=== PATIENT | male | born 1950 | race Caucasian/White ===

== ENCOUNTER 2019-02-26 10:56 | Inpatient (IN) ==
--- NOTE | 2019-01-22 14:45 | PAT Medication Instructions ---
Medication Instructions Date of Service January 22, 2019 Home Medications aspirin 81 mg PO QPM atorvastatin 10 mg PO PM hydrochlorothiazide 12.5 mg PO QPM ramipril 10 mg PO QPM Take evening before surgery aspirin 81 mg PO QPM atorvastatin 10 mg PO PM hydrochlorothiazide 12.5 mg PO QPM ramipril 10 mg PO QPM Other Notes If you have any questions please call us at [phone] or [phone] or [phone] or [phone]
--- NOTE | 2019-01-25 11:00 | Anesthesiology Consultation ---
Date of Service January 25, 2019 Assessment & Plan (1) Encounter for pre-operative examination: - Awaiting review preop testing (EKG). - Awaiting review of 2018 stress test. - S/P right shoulder scope, RCR, acromioplasty: 03/05/18: LMA#5 unique + [place] [facility] [place] Review Chart Review: Patient seen in Pre Admission Testing Teaching & Discussion Pre-Anesthesia Teaching/Discussion Notes: Instructed NPO after midnight before surgery,except medications with 15 cc of water. Medication instructions prov ided according to the PAT guidelines. History Surgery Operation Date: 02/26/19 13:00 Proposed Procedures p Right Total Knee Arthroplasty - Alvin Rose DO Height/Weight Height: 5 ft 9 in Weight: 83.5 kg Allergies Allergy/AdvReac Type Severity Reaction Status Date / Time No Known Allergies Allergy Verified 01/13/19 10:43 Medications Home Medications Medication Instructions Recorded Confirmed Last Taken aspirin 81 mg PO QPM 02/13/18 01/25/19 03/04/18 atorvastatin 10 mg PO PM 02/13/18 01/25/19 03/04/18 hydrochlorothiazide 12.5 mg PO QPM 02/13/18 01/25/19 03/04/18 ramipril 10 mg PO QPM 02/13/18 01/25/19 03/04/18 Past Medical History Medical History Hearing deficit BL KIRKPATRICK Hyperlipidemia Hypertension Kidney stones Osteoarthritis Exercise / Class Metabolic Activity II 4-5 Yardwork/Stairs/Walk up hill (one flight of stairs (no chest pain/no sob)) Past Surgical History Surgical History (Updated 01/25/19 @ 11:15 by Nani Marino) History of colonoscopy History of hand surgery LEFT HAND History of repair of rotator cuff right shoulder scope, RCR, acromioplasty: 03/05/18: LMA#5 unique + PNB at [facility] [place] History of tonsillectomy RIGHT Past Anesthesia History No Hx of Anesthesia Complications and No Family Hx of Anesthesia Complications History of PONV No Hx of PONV and No Hx of Motion Sickness Social History Smoking Status: Former smoker tobacco type: smokeless tobacco Do You Dip or Chew Tobacco: Yes (1 CAN/2 DAYS- ADVISED NPO AM DOS) Smoking End Date: QUIT 25 YRS AGO Hx Alcohol Use: Yes Alcohol type: beer, wine and hard liquor alcohol intake frequency: holidays/special occasions only Hx Substance Use: No substance use type: does not use Review of Systems Patient denies chest pain, shortness of breath, dyspnea on exertion, reflux, cough, wheezing, palpitations. Physical Exam Vital Signs VITALS BP 126/85 P 55 TEMP 97.7 SP02 95%RA RESP 16 PHYSICAL Full neck and c-spine range of motion. Full TMJ range of motion. TMD 2.5 finger breaths Mallampati Score 1 Dentition: full dentures upper/lower; edentulous Lungs: clear throughout to auscultation Cardiac: regular rate and rhythm, no murmurs noted Spine: normal Carotid arteries: negative bruit Extremities: no edema Trimmed rodas Testing Laboratory Results 01/25/19 11:11 01/25/19 11:11 PT 10.5 Seconds (9.0-12.0) 01/25/19 11:11 INR 1.0 (0.9-1.1) 01/25/19 11:11 APTT 27.1 Seconds (21.0-31.0) 01/25/19 11:11 Blood Type A Positive 01/25/19 11:11 Antibody Screen NEGATIVE 01/25/19 11:11 Chest X-Ray Date: 01/25/19 Borderline cardiomegaly. No other convincing evidence of acute cardiopulmonary disease.
[2019-01-25 11:46] LABS: Basophils # (auto) 0.03 K/uL (0-0.2); Basophils % (auto) 0.6 %; Eosinophils # (auto) 0.13 K/uL (0-0.5); Eosinophils % (auto) 2.8 %; Hematocrit (blood only) 44.2 % (42-52); Hemoglobin 14.9 g/dL (14.0-18.0); Immature Granulocytes # (auto) 0.01 K/uL (0.00-0.02); Immature Granulocytes % (auto) 0.2 %; Lymphocytes # (auto) 1.37 K/uL (1.2-3.4); Lymphocytes % (auto) 29.3 %; Mean Corpuscular Hemoglobin 30.9 pg (25-34); Mean Corpuscular Hgb Conc 33.7 g/dL (32-36); Mean Corpuscular Volume 91.7 fL (80-100); Mean Platelet Volume 11.5 fL (7.4-10.4); Monocytes # (auto) 0.57 K/uL (0.11-0.59); Monocytes % (auto) 12.2 %; Neutrophils # (auto) 2.57 K/uL (1.4-6.5); Neutrophils % (auto) 54.9 %; Platelet Count 169 K/uL (130-400); RDW Coefficient of Variation 12.8 % (11.5-14.5); RDW Standard Deviation 42.9 fL (36.4-46.3); Red Blood Count 4.82 M/uL (4.7-6.1); White Blood Count 4.68 K/uL (4.8-10.8)
[2019-01-25 11:54] LABS: Calcium 9.5 mg/dl (8.5-10.1); Est GFR (African American) 66.7; Est GFR (Non-African American) 57.5; Potassium 4.4 mmol/L (3.5-5.1)
[2019-01-25 11:57] LABS: Partial Thromboplastin Time 27.1 Seconds (21.0-31.0); Prothrombin Time 10.5 Seconds (9.0-12.0)
--- NOTE | 2019-01-25 12:18 | XRay Report ---
XR chest Pre-admission PA/Lat CLINICAL HISTORY: 68 years-old Male presenting with preoperative assessment. TECHNIQUE: PA and lateral views of the chest were obtained. COMPARISON: None. FINDINGS: Cardiac silhouette borderline enlarged. Lungs and pleural spaces clear. Osseous structures normal. Up per abdomen normal. IMPRESSION: 1. Borderline cardiomegaly. No other convincing evidence of acute cardiopulmonary disease. Electronically signed by: Reinaldo Engel M.D. 01/25/2019 12:17 PM
--- NOTE | 2019-02-25 06:52 | History & Physical Report ---
Date of Service February 25, 2019 Assessment & Plan (1) Osteoarthritis of right knee: We will proceed with a right total knee arthroplasty. Postoperatively he will be started on aspirin for DVT prophylaxis. He will be kept overnight in the hospital for postoperative medical management. He plans [facility] upon discharge. Present on Admission?: Yes History of Present Illness Chief Complaint: Primary osteoarthritis of the right knee Primary Care Provider: John Collado is a pleasant 68-year-old male who is been dealing with chronic increasing right knee pain. X-rays and clinical examination has been diagnostic for medial compartment arthritis of the right knee. I also have an MRI of his right knee which shows advancing arthritis. After failing conservative treatment, he has elected to proceed with a right total knee arthroplasty. Allergies Allergy/AdvReac Type Severity Reaction Status Date / Time No Known Allergies Allergy Verified 01/13/19 10:43 Home Medications Home Medications Medication Instructions Recorded Confirmed Type aspirin 81 mg PO QPM 02/13/18 01/25/19 History atorvastatin 10 mg PO PM 02/13/18 01/25/19 History hydrochlorothiazide 12.5 mg PO QPM 02/13/18 01/25/19 History ramipril 10 mg PO QPM 02/13/18 01/25/19 History Past Med/Surg History Medical History Hearing deficit BL KIRKPATRICK Hyperlipidemia Hypertension Kidney stones Osteoarthritis Surgical History History of colonoscopy History of hand surgery LEFT HAND History of repair of rotator cuff right shoulder scope, RCR, acromioplasty: 03/05/18: LMA#5 unique [place] [facility] [place] History of tonsillectomy RIGHT Social History Preferred Language: Samoan Communication Ability: Effective Matlab Developer Required: No Beliefs That Will Affect Care: None Current Living Situation: Spouse Other Information That Helps Us Care for You: No Feels Safe at Home: Yes Safety Concerns: Feels Safe At This Time Smoking Status: Former smoker Tobacco Type: smokeless tobacco ; Do You Dip or Chew Tobacco: Yes (1 CAN/2 DAYS- ADVISED NPO AM DOS) ; Smoking End Date: QUIT 25 YRS AGO ; Second Hand Exposure: No ; Hx Alcohol Use: Yes Alcohol type: beer, wine and hard liquor Hx Substance Use: No Review of Systems All systems reviewed & are unremarkable except as noted in HPI & below Physical Exam Constitutional: WD/WN, vitals as above Eyes: PERRL, conjunctivae normal, anicteric sclerae ENMT: external ear and nose normal, oropharynx normal Neck: trachea midline, no thyromegaly Respiratory: normal respiratory effort Cardiovascular: RRR, no murmur, no edema Gastrointestinal (Abdomen): normal bowel sounds, soft, nontender, no hepatosplenomegaly Musculoskeletal: On physical examination of the right knee there is a trace effusion. There is near full range of motion and no evidence of instability. There is significant tenderness palpation along the medial and lateral joint lines and over the distal femoral condyles. Psychiatric: A+Ox3, euthymic affect Results & Data Diagnostic Findings Radiographs of the right knee demonstrate advanced osteoarthritis with joint space narrowing osteophyte formation and [id number] articulation.
[~2019-02-26 10:56] MED LIST: ACETAMINOPHEN 500 MG TAB PO SCH; BUPIVACAINE 0.5 % 5 MG/1 ML PF 10ML VIAL ONE; CEFAZOLIN 2000MG 2,000 MG/15 ML SYR IV SCH; EPINEPHrine INJ 1 MG/ML AMP ONE; FAMOTIDINE 20 MG TAB PO SCH; GABAPENTIN 300 MG CAP PO SCH; LR 500ML BOLUS, THEN 15ML/HR IV SCH; LR 60ML/HR IV SCH; MIDAZOLAM HCL 1 MG/ML 2ML VIAL ONE; ROPIVACAINE 0.5% 5 MG/ML 30 ML VIAL ONE; ROPIVACAINE 0.5% HCL/PF 150 MG, BUPIVACAINE 0.5% MPF 30 ML, EPINEPHrine 30MG/30ML (OR U... INSTIL SCH; TRANEXAMIC ACID 1,000 MG **IV Intra-op IV SCH; TRANEXAMIC ACID 1,000 MG **IV Pre-op IV SCH; fentaNYL citrate 100 MCG/2 ML VIAL ONE
[2019-02-26] MEDS ORDERED: TRANEXAMIC ACID / 0.7% NACL 1000MG/100ML BAG IV ONE (11:07)
[2019-02-26] MEDS ORDERED: dexAMETHasone 4 MG TAB PO ONE (11:34)
--- NOTE | 2019-02-26 11:37 | History & Physical Bridge Note ---
Date of Service February 26, 2019 History & Physical Bridge Note I have examined the patient, reviewed the History & Physical and in the interval since the performance of the History & Physical I have noted the following changes of clinical significance: no changes noted
[2019-02-26] MEDS ORDERED: ORTHO JOINT ANESTHETIC ONE (12:11)
[2019-02-26] MEDS ORDERED: LABETALOL HCL IV 5 MG/ML 20ML IV PRN (12:35)
[2019-02-26] MEDS ORDERED: ePHEDrine sulfate 50 MG/ML AMP IV PRN (12:35)
[2019-02-26] MEDS ORDERED: ONDANSETRON INJ 2 MG/ML 2 ML VIAL IV PRN ×2 (12:35→15:31)
[2019-02-26] MEDS ORDERED: MEPERIDINE HCL 25 MG/ML CARP IV PRN (12:35)
[2019-02-26] MEDS ORDERED: PHENYLEPHRINE 100MCG/ML 5ML SYR IV PRN (12:35)
[2019-02-26] MEDS ORDERED: HYDROmorphone INJ 1 MG/ML SYRINGE IV PRN (12:35)
[2019-02-26] MEDS ORDERED: ATROPINE SULFATE 0.1 MG/ML 10ML SYR IV PRN (12:35)
[2019-02-26] MEDS ORDERED: fentaNYL citrate 100 MCG/2 ML VIAL IV PRN (12:35)
[2019-02-26] MEDS ORDERED: PROPOFOL IV EMULSION 10 MG/ML 20 ML VIAL IV ONE (13:11)
--- NOTE | 2019-02-26 14:21 | Operative Report ---
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 MRI and clinical examination are diagnostic for advanced arthritis mostly involving the medial compartment of the right knee. After failing conservative treatment, he elected proceed with a right total knee arthroplasty. Description of Procedure Implants used: I used a Biomet Vanguard total knee arthroplasty system with a size 70 femur, 75 tibia, 31 patella, and a size 12 PS polyethylene bearing. All components were cemented in place with Palacos G cement. The patient arrived [facility] for the above procedure. There were seen in the preoperative holding area and the operative extremity was identified and signed. There were given a preoperative antibiotic, a spinal anesthetic and an adductor nerve block. There were taken back to the operating room and laid on the table in supine position. There were given basic sedation. The operative knee was then prepped and draped in sterile fashion. A timeout was done, and the patient and the operative extremity was properly identified. A midline incision was made directly over the patella. Dissection was taken down to the extensor mechanism. A subvastus arthrotomy was used. The medial retinaculum was released and the fat pad was mostly left intact. The knee was flexed and the ACL, PCL, and meniscus were removed. A drill was sent down the center of the femoral canal followed by an intramedullary jodi. Off that jodi a distal femoral cutting block was placed. 9 mm was resected off the distal femur at 5 of valgus. A posterior referencing AP sizing guide was then placed on the distal femur. The femur measured to be a size 70. 2 drill holes were placed in 3 of external rotation. A 4-in-1 cutting block was then impacted into place. Anterior posterior and chamfer cuts were then made. The posterior stabilizing box guide was then impacted into place and the box was resected for the posterior stabilizing component. The proximal tibia was then exposed. A drill was sent down the center of the tibial canal followed by an intramedullary jodi. Off that jodi a proximal tibial resection guide was placed. The proximal tibia was then resected. The tibia measured to be a size 75. The tibial plate was then placed in the appropriate rotation and the tibia was punched. The posterior aspect of the knee was then opened up and any additional meniscus fragments and osteophytes were removed. Trial components were then placed. I used a size 12 PS polyethylene insert. Th e knee was brought through a full range of motion and felt to be stable. The patella was then everted and 8 mm was resected off the posterior aspect of the patella. The patella measured to be a size 31. 3 peg holes were then drilled. A trial patella was placed. The knee was once again brought through a full range of motion and felt to be stable. Trial components were then removed. The surrounding soft tissues were injected with 100 cc of an orthopedic pain control cocktail. All components were then cemented into place with Palacos G cement. The final polyethylene insert was then snapped into place and the anterior bar was locked. Once cement was dry the tourniquet was deflated. Hemostasis was obtained. A dilute betadyne lavage was then done for 3 minutes. The joint was then irrigated with normal saline solution. The subvastus arthrotomy was then closed with #1 Vicryl suture. The skin was closed with 2-0 Vicryl, 3-0V lock suture, and milly. A soft compressive dressing was placed. The patient was then transferred to a hospital bed and taken to the postanesthesia care unit in stable condition. They tolerated the procedure well. I attest to the content of the Intraoperative Record and any orders documented therein. Any exceptions are noted below.
[2019-02-26] MEDS ORDERED: PHENYLEPHRINE 100MCG/ML 5ML SYR ONE (14:26)
--- NOTE | 2019-02-26 15:00 | XRay Report ---
TWO VIEWS RIGHT KNEE CLINICAL HISTORY: Postoperative examination. FINDINGS: AP and crosstable lateral portable views of the right knee are obtained. A right knee arthr oplasty is in near anatomic alignment. There has been undersurface remodeling of the patella. No acut e fracture is seen. There are expected postoperative changes around the knee including skin clips, so ft tissue edema, and subcutaneous gas. IMPRESSION: Expected postoperative changes status post right knee arthroplasty. No acute fracture is seen. ACT 112: Negative or not required by law. Electronically signed by: Kam Cramer M.D. 02/26/2019 2:58 PM
--- NOTE | 2019-02-26 15:08 | Anesthesiology Progress Note ---
Date of Service February 26, 2019 Anesthesia Post Procedure Vital Signs Vital Signs: Temp Pulse Pulse Pulse Resp BP BP 02/26/19 14:51 77 15 99/59 L 02/26/19 14:50 71 13 02/26/19 14:46 75 21 02/26/19 14:45 75 14 94/56 L 02/26/19 14:43 72 12 95/62 L 02/26/19 14:41 87 17 02/26/19 14:40 77 13 89/50 L 02/26/19 14:37 74 13 02/26/19 14:36 36.1 C L 76 74 14 98/58 L 98/58 L 02/26/19 11:14 36.9 C 72 18 136/88 Pulse Ox 02/26/19 14:51 96 02/26/19 14:50 95 02/26/19 14:46 02/26/19 14:45 02/26/19 14:43 02/26/19 14:41 02/26/19 14:40 02/26/19 14:37 02/26/19 14:36 100 02/26/19 11:14 97 Pain Intensity Right Knee: Pain Intensity: 0 Transfer of Care Handoff Completed per policy Notes Mental Status: alert / awake / arousable Patient Amnestic to Procedure: Yes Nausea / Vomiting: adequately controlled Pain: adequately controlled Airway Patency, RR, SpO2: stable & adequate BP & HR: stable & adequate Hydration State: stable & adequate Neuraxial Anesthesia: was administered and sensory block is resolving Anesthetic Complications: no major complications apparent and Pt Satisfied with anesthetic care
[2019-02-26] MEDS ORDERED: bisacodyL 10 MG SUPP PR PRN (15:31)
[2019-02-26] MEDS ORDERED: HYDROmorphone INJ 0.5 MG/0.5 ML SYR IV PRN (15:31)
[2019-02-26] MEDS ORDERED: MAGNESIUM HYDROXIDE SUSP 30 ML UDC PO PRN (15:31)
[2019-02-26] MEDS ORDERED: METOCLOPRAMIDE HCL INJ 5 MG/ML 2 ML VIAL IV PRN (15:31)
[2019-02-26] MEDS ORDERED: OXYCODONE HCL IR 5 MG TAB (IMMEDIATE RELEASE) PO PRN (15:31)
[2019-02-26] MEDS ORDERED: NALOXONE HCL 0.4 MG/1 ML VIAL/CARP IV PRN (15:31)
[2019-02-26] MEDS ORDERED: KETOROLAC 30 MG/ML VIAL IV SCH (16:00)
[2019-02-26] MEDS: SODIUM CHLORIDE 0.9% 1000ML 1,000 ML IV SCH (16:33)
[2019-02-26] MEDS: KETOROLAC TROMETHAMINE 15 MG/ML VIAL IV SCH ×2 (16:53→22:31)
[2019-02-26] MEDS ORDERED: hydroCHLOROthiazide 25 MG TAB PO SCH (21:00)
[2019-02-26] MEDS ORDERED: SENNA 8.6 MG TAB PO SCH (21:00)
[2019-02-26] MEDS ORDERED: ENALAPRIL MALEATE 10 MG TAB PO SCH (21:00)
[2019-02-26] MEDS ORDERED: ATORVASTATIN 10 MG TAB PO SCH (21:00)
[2019-02-26] MEDS: CEFAZOLIN 2000MG 2,000 MG/15 ML SYR IV SCH (21:11)
[2019-02-26] MEDS: DOCUSATE SODIUM 100 MG CAP PO SCH (21:12)
[2019-02-26] MEDS: ASPIRIN 81 MG ECTAB PO SCH (21:14)
[2019-02-26] MEDS: ACETAMINOPHEN 500 MG TAB PO SCH (21:15)
[2019-02-27] MEDS: SODIUM CHLORIDE 0.9% 1000ML 1,000 ML IV SCH (02:42)
[2019-02-27] MEDS: ACETAMINOPHEN 500 MG TAB PO SCH (05:11)
[2019-02-27] MEDS: KETOROLAC TROMETHAMINE 15 MG/ML VIAL IV SCH (05:11)
[2019-02-27] MEDS: CEFAZOLIN 2000MG 2,000 MG/15 ML SYR IV SCH (05:11)
[2019-02-27 05:22] LABS: Hematocrit (blood only) 36.9 % (42-52); Hemoglobin 12.3 g/dL (14.0-18.0); Mean Corpuscular Hemoglobin 30.5 pg (25-34); Mean Corpuscular Hgb Conc 33.3 g/dL (32-36); Mean Corpuscular Volume 91.6 fL (80-100); Mean Platelet Volume 11.6 fL (7.4-10.4); Platelet Count 171 K/uL (130-400); RDW Coefficient of Variation 12.8 % (11.5-14.5); Red Blood Count 4.03 M/uL (4.7-6.1); White Blood Count 14.51 K/uL (4.8-10.8)
[2019-02-27 05:48] LABS: BUN Creatinine Ratio 16.8 (10-20); Calcium 8.7 mg/dl (8.5-10.1); Creatinine Clr Calc Pharmacy 49.8 ml/min; Est GFR (African American) 57.8; Est GFR (Non-African American) 49.9; Potassium 4.7 mmol/L (3.5-5.1)
--- NOTE | 2019-02-27 06:29 | Orthopedic Progress Note ---
Date of Service February 27, 2019 Assessment & Plan (1) History of total right knee replacement: Overall is doing very well. Is not having much pain in the right knee. He is on aspirin for DVT prophylaxis. He will be seen by physical therapy this morning for ambulation and range of motion exercises. He can be discharged home later today. He will follow-up with orthopedics in 2 weeks. Present on Admission?: Yes Subjective Tobias was seen and examined at bedside this morning. Overall he is doing very well. Is not having much pain in the right knee. He has already ambulated around the nurses station. He has no complaints. Physical Exam Musculoskeletal: On physical examination of the right knee, the dressing is clean and dry. He has active dorsiflexion and plantarflexion of his right ankle. Sensation is intact throughout. Results & Data Vital Signs (Past 12 Hours) Vital Signs Temp Pulse Resp BP Pulse Ox 02/27/19 04:06 36.5 C 67 16 93/58 L 97 02/26/19 23:04 36.7 C 81 16 116/71 94 02/26/19 20:04 36.6 C 90 16 115/78 96 02/26/19 18:42 36.7 C 89 17 111/74 94 Laboratory Results H & H 01/25/19 02/27/19 Range/Units 11:11 04:56 Hgb 14.9 12.3 L (14.0-18.0) g/dL Hct 44.2 36.9 L (42-52) % Coagulation 01/25/19 Range/Units 11:11 INR 1.0 (0.9-1.1) Diagnostic Findings Postoperative x-rays of the right knee show the prosthesis to be in anatomic alignment without any evidence of fracture, dislocation, or loosening. PG Care Time/CCT Total # of Minutes Spent Total Time Spent with Patient: Total time spent is greater than 50% in coordination of care (as documented) at patient's floor/unit and/or counseling patient:
--- NOTE | 2019-02-27 06:33 | Discharge Summary ---
Date of Service February 27, 2019 Admission HPI Per Admitting Provider Tobias is a pleasant 68-year-old male who is been dealing with chronic increasing right knee pain. X-rays and clinical examination has been diagnostic for medial compartment arthritis of the right knee. I also have an MRI of his right knee which shows advancing arthritis. After failing conservative treatment, he has elected to proceed with a right total knee arthroplasty. Principal Diagnosis Right total knee arthroplasty Discharge Data Allergies Allergy/AdvReac Type Severity Reaction Status Date / Time No Known Allergies Allergy Verified 02/26/19 11:13 Consultations 02/26/19 15:31 Consult Case Management - Discharge Planning Routine Procedures Performed Operation Date: 02/26/19 13:40 Actual Procedures p Right Total Knee Arthroplasty(Right) - Alvin Rose DO Ordered Studies 02/26/19 05:00 US - OR guided needle placemen Routine Hospital Course (1) History of total right knee replacement: On February 26, 2019 Tobias arrived at [facility] and underwent a right total knee arthroplasty without complication. He had a spinal anesthetic. Postoperatively he was started on aspirin for DVT prophylaxis and discharged to general orthopedic floors. His hospital course was uneventful. On postop day #1 his H&H was stable and his pain was well controlled. He was able to participate well with physical therapy doing ambulation and range of motion exercises. He was then discharged home. He will follow-up with orthopedics in 2 weeks. Total Time Total Time Spent Total Time Spent (In Minutes): 20 Discharge Plan Discharge Items Reason For Visit: Right Knee Degenerative Joint Disease Discharge Diagnosis: Right total knee arthroplasty Activity: As commented below Non-emergency contact: Surgeon Call non-emergency contact if: your wound has increased redness and your wound has increased drainage Follow-up/Referrals: John Casey [Primary Care Provider] - Diet: Regular Addtl Attending Provider Instructions: Activity and Therapy Recommendations: * If you are using [facility] then therapy will be provided at your home until they feel you have accomplished all of your goals. * If you are using [facility] then Physical Therapy will be provided until they feel you are ready to start Outpatient Physical Therapy. * If you are not using home therapy then Outpatient Physical Therapy should start about 3-5 days from your day of surgery. Therapy will last about 6-10 weeks * It is important not to put a pillow under your knee when you are relaxing or sleeping. It is just as important to make sure you are getting your knee perfectly straight as it is to regain your knee bend. * You were shown a series of exercises in the hospital. Do these exercises three times each day including the exercises you were shown in physical therapy. * Get up and walk several times each day. For the first four weeks, try not to stand or walk for more than one hour at a time. If you do stand or walk for more than one hour, you will not hurt anything, but your leg will likely swell. * As you feel comfortable, you may change from the walker or crutches to a cane and then to independent walking. Medications: * Narcotic You will likely be sent home from the hospital with a prescription for the narcotic pain medication that worked best throughout your stay. * Aspirin Most patients will be required to take Aspirin 81mg twice a day for 6 weeks after surgery. This is obtained [id number] and a prescription is not necessary. * Other medications may be prescribed for specific circumstances. If you have any questions, please call the office at . * Resume previous home medications unless otherwise instructed TEDs/Elastic Stockings: The white elastic stockings help limit swelling and prevent blood clots from forming in your legs.~ The more you wear them, the more they work. Wear them for six weeks. Dressing Care: If the incision is not draining then you may leave the milly open to air. If there is a little bit of drainage or if the milly are getting stuck on your clothing then cover the incision with a dry dressing. The milly will be removed at your 2 week follow-up appointment. Showering: You may shower 5 days from the day of surgery. Let the soapy shower water run over the milly and pat them dry. Do not scrub or soak the incision. Things To Watch For: * Drainage from the incision site that occurs more than one week after your surgery. * Increased redness at the incision site. * Fever above 102 degrees Fahrenheit. * Unusual chest pain or shortness of breath. * Call [facility] at with any of the above problems Follow-Up Visit: Follow-up with Dr. Rose 2-3 weeks after your day of surgery. An appointment was probably scheduled when you signed-up for surgery in the office. If you have any questions call Office Instructions: More detailed instructions as well as Frequently Asked Questions were provided in a folder by our office when you signed-up for surgery. Please review these instructions when you get home. If you have any further questions or concerns, please feel free to call the office at [phone] Pending Studies at Discharge: No Stand-Alone Forms: [facility] [employer], Smoking Cessation Medications and DC Order Prescriptions: New oxycodone 5 mg Tablet 5 mg PO Q4H PRN (Reason: pain) Qty: 30 RF: 0 Continued atorvastatin 10 mg Tablet 10 mg PO PM RF: 0 ramipril 10 mg Capsule 10 mg PO QPM RF: 0 hydrochlorothiazide 12.5 mg Tablet 12.5 mg PO QPM RF: 0 Changed aspirin 81 mg Tablet,Delayed Release (Dr/Ec) 81 mg PO BID 42 Days Qty: 0 RF: 0 Admission Data Admit Date/Time: 02/26/19 14:38 Attending Provider: Alvin Rose Admit Provider: Alvin Rose Primary Care Provider: John Casey
[2019-02-27] MEDS ORDERED: dexAMETHasone 4 MG TAB PO SCH (08:00)
[2019-02-27] MEDS: ASPIRIN 81 MG ECTAB PO SCH (08:28)
[2019-02-27] MEDS: DOCUSATE SODIUM 100 MG CAP PO SCH (08:28)
[2019-02-27] MEDS ORDERED: MULTIVITAMIN TAB PO SCH (09:00)
== END 2019-02-27 10:16 | disposition home or self-care (01) | DRG 470 ==
LOC: ASU 10:56 → 3E 14:38